=== PATIENT | female | born 1950 | race Caucasian/White ===

== ENCOUNTER 2020-05-18 13:04 | Emergency (ER) | payer MEDICARE, OTHER ==
[~2020-05-18] VITALS: Ht 157.5 cm; Wt 79.0 kg
[~2020-05-18 13:04] MED LIST: ALPR0.5T PO; ATOR20TA PO; FURO-69 PO; HYDR-3165 PO; LEXAPRO20 MG PO; OLME1TAB21 PO; PRAM0.255 PO
[2020-05-18 14:06] VITALS: BP 138/64
--- NOTE | 2020-05-18 14:18 | RAD ---
Study: CR WRIST 2V LEFT Indication: Pain and swelling. Comparison: 06/23/2014 Findings: Diffuse osteopenia. No acute fracture. 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 Degenerative changes at the scapholunate articulation without interval widening. Lunate cystic change along its ulnar margin. No significant narrowing across the scaphocapitate/lunocapitate or radiocarpal articulations. Mild ulnar positive variance. Small chronic ossicle adjacent to the ulnar styloid process. Possible mild soft tissue prominence at the dorsal and ulnar aspects of the wrist but this would be better assessed clinically. Trace calcium pyrophosphate deposition at the expected location of the TFCC. Impression: 1. No acute osseous abnormality. 2. Degenerative changes greatest at the triscaphe joint and less so across the scapholunate interface. 3. Chronic cystic change within the lunate in the setting of mild ulnar positive variance. Recommend correlation for symptoms of ulnar impaction. Electronically signed by: JAKE JOHN MD (05/18/2020 2:15 PM) [id number]
--- NOTE | 2020-05-18 14:37 | PHYS DOC ---
Past History Past Medical History: Depression, High Cholesterol, Hypertension, Hypothyroid, Other Additional Past Medical Histor: panic attacks Past Surgical History: Hysterectomy, Oophorectomy, Other Additional Past Surgical Histo: multiple hand surgerys Smoking: Non-smoker Alcohol Use: Rarely Drug Use: None Adult General Chief Complaint Chief Complaint: WRIST PAIN HPI HPI Patient is a 69-year-old female who presents to the emergency room complaining of left wrist pain. Patient has some chronic pain in this wrist. She states that at [facility] just a worker pulled the cart away from her hurting her wrist. She has been having pain for the last couple days with some swelling. Denies any other injuries. Review of Systems Review of Systems General: Denies fever, chills, sweats, fatigue Eyes: Denies drainage, blurred vision, eye redness HENT: Denies rhinorrhea, sore throat, earache Respiratory: Denies cough, shortness of breath, wheezing Cardiac: Denies edema, palpitations, chest pain GI: Denies abdominal pain, Nausea, vomiting MSK: Denies back pain, neck pain Skin: Denies rash, jaundice Neuro: Denies headache, dizziness Psychiatric: Denies SI/HI Allergies Allergies Allergies Coded Allergies Type Severity Reaction Last Updated Verified No Known Drug Allergies 06/04/14 No Physical Exam Physical Exam General: Awake, alert, NAD. Well Nourished, well hydrated. Cooperative HEENT: Atraumatic, EOMI, PERRL, airway patent, moist oral mucosa Neck: Supple, trachea midline MSK: L wrist: medial swelling with tenderness Skin: Warm, dry, intact Neuro: A&O x3, speech NL, sensory and motor grossly intact, no focal deficits Psych: Normal affect, normal mood, not suicidal or homicidal Current Patient Data Vital Signs Vital Signs Date Time Temp Pulse Resp B/P (MAP) Pulse Ox O2 Delivery O2 Flow Rate FiO2 05/18/20 14:06 69 18 138/64 (88) 96 Room Air 05/18/20 13:20 98.1 EKG EKG [] Radiology/Procedures Radiology/Procedures [] Course & Med Decision Making Course & Med Decision Making Pertinent Labs and Imaging studies reviewed. (See chart for details) Patient 69-year-old female presents to the emergency room with left wrist pain after minor injury. X-ray was done and was negative for an acute fracture. Patient has chronic changes from prior fractures. She likely has a wrist strain. Patient's test results and vitals while in the ED were fully reviewed and discussed with the patient. Patient is stable and at this time does not need admission to the hospital. We have discussed strict return precautions and the importance of following up with their Primary Care Physician. Patient stated understanding and was given an opportunity to ask any questions. Patient is in agreement with plan. Dragon Disclaimer Dragon Disclaimer This electronic medical record was generated, in whole or in part, using a voice recognition dictation system. Departure Departure: Impression: Primary Impression: Wrist sprain Disposition: HOME/RESIDENCE PRIOR TO ADM Condition: STABLE Referrals: JANE CASEY DO (PCP) Patient Instructions: Wrist Pain Justification of Admission: Justification of Admission: Justification of Admission Dx: N/A TREVOR OSEGUERA MD May 18, 2020 14:37
== END 2020-05-18 14:43 | disposition home or self-care (01) ==
LOC: ER 13:04
DX: S63.502A Unspecified sprain of left wrist, initial encounter (principal); F32.9 Major depressive disorder, single episode, unspecified; E78.00 Pure hypercholesterolemia, unspecified; I10 Essential (primary) hypertension; E03.9 Hypothyroidism, unspecified; X50.9XXA Other and unspecified overexertion or strenuous movements or postures, initial encounter; Y93.89 Activity, other specified; Y92.513 Shop (commercial) as the place of occurrence of the external cause; Y99.8 Other external cause status
CPT/HCPCS: 73100; 99284